=== PATIENT | male | born 1970 | race Caucasian/White ===

== ENCOUNTER → 2020-10-25 | Outpatient (CLI) | payer BC ==
[2020-10-25 12:21] LABS: RED BLOOD COUNT 6.22 M/UL (4.20-5.50)
[2020-10-25 12:35] LABS: BUN/CREATININE RATIO 21 (0-10)
== END ==
LOC: LAB 09:45
PROVIDERS: Family Medicine
DX: E11.9 Type 2 diabetes mellitus without complications (principal); E78.5 Hyperlipidemia, unspecified; I10 Essential (primary) hypertension; E55.9 Vitamin D deficiency, unspecified
CPT/HCPCS: 80053; 80061; 83036; 84439; 84443; 85027

== ENCOUNTER → 2021-07-25 | Outpatient (CLI) | payer BC ==
[2021-07-25 11:46] LABS: HEMOGLOBIN 15.7 gm/dl (14.0-17.5); RED BLOOD COUNT 5.41 M/UL (4.20-5.50); WHITE BLOOD COUNT 10.3 K/UL (4.5-11.0)
[2021-07-25 12:05] LABS: BUN/CREATININE RATIO 27 (0-10)
[2021-07-26 08:16] LABS: VITAMIN D, 25-HYDROXY 19.8 ng/mL (30.0-100.0)
[2021-07-27 22:06] LABS: TESTOSTERONE, SERUM 268 ng/dL (264-916)
== END ==
LOC: LAB 10:58
PROVIDERS: Nurse Practitioner Family
DX: E78.5 Hyperlipidemia, unspecified (principal); I10 Essential (primary) hypertension; E29.1 Testicular hypofunction; E11.9 Type 2 diabetes mellitus without complications; E55.9 Vitamin D deficiency, unspecified
CPT/HCPCS: 36415; 80053; 80061; 82570; 82607; 84156; 84402; 84403; 84439; 84443; 85025